=== PATIENT | female | born 1955 | race African-American/Black ===

== ENCOUNTER 2024-12-18 12:33 | Emergency (ER) | payer OTHER, MEDICAID ==
[~2024-12-18] VITALS: Ht 165.1 cm; Wt 88.5 kg
[~2024-12-18 12:33] MED LIST: ASPI-1406 PO; ATOR-388 PO; CLOP-31 PO; COR3 PO; DOCU-138 PO; HYDR-2988 MT; LISI-652 PO; MELA10TA2 PO; POLY17PO3 PO
[2024-12-18 12:36] VITALS: O2SAT 99
[2024-12-18] MEDS ORDERED: IOHEXOL-350 100 ML BOTTLE ONE (13:10)
[2024-12-18 13:33] LABS: BASOPHILS % 0.3 % (0.0-2.0); EOSINOPHILS % 1.3 % (0.0-5.0); HEMATOCRIT. 39.7 % (36.0-48.0); HEMOGLOBIN. 13.1 g/dL (12.0-16.0); LYMPHOCYTES % 8.7 % (20.0-50.0); MEAN PLATELET VOLUME 8.7 fl (7.4-10.4); MONOCYTES % 4.4 % (2.0-8.0); NEUTROPHILS % 85.3 % (40.0-76.0); PLATELET 599 x1000/uL (130-400); RED BLOOD CELL COUNT 5.08 mill/uL (4.2-5.4); RED CELL DISTRIBUTION WIDTH 17.8 % (11.6-14.6)
[2024-12-18 13:45] LABS: INR 1.1
[2024-12-18 13:49] LABS: CREATININE 0.7 mg/dL (0.6-1.0); ETHANOL BLOOD < 10 mg/dL (<10); UREA NITROGEN BLOOD 6 mg/dL (9-23)
[2024-12-18] MEDS: LORAZEPAM 2MG/ML UD SYRINGE IV NR (14:11)
[2024-12-18] MEDS: LEVETIRACETAM 1500MG PREMIX 100 ML IV STA (14:13)
[2024-12-18 14:14] LABS: TROPONIN I HIGH SENSITIVITY 55 ng/L (3.0-34)
[2024-12-18] MEDS: HYDRALAZINE 20MG/ML VIAL IV ONE (16:04)
[2024-12-18] MEDS: ACETAMINOPHEN 325MG TABLET PO ONE (16:51)
[2024-12-18] MEDS: HYDRALAZINE HCL 10MG TABLET PO ONE (16:58)
[2024-12-18] MEDS: CARVEDILOL 3.125 MG TABLET PO ONE (16:59)
[2024-12-18] MEDS ORDERED: HYDRALAZINE HCL 10MG TABLET PO SCH (17:00)
[2024-12-18 17:08] VITALS: BP 177/85; PULSE 82; RESP 18; TEMP 36.8; O2SAT 97
== END 2024-12-18 15:30 | disposition short-term general hospital (02) ==
LOC: ER 12:33
DX: R47.81 Slurred speech (principal); R56.9 Unspecified convulsions; E11.9 Type 2 diabetes mellitus without complications; Z79.899 Other long term (current) drug therapy; Z98.890 Other specified postprocedural states
CPT/HCPCS: 80048; 80320; 85025; 85610; 84484; 36415; 71045; 70496; 70498; 70450; 93005; 96374; 96375; 99291; Q9967; J1953; J0360; J2060; G0480